=== PATIENT | male | born 1990 | race Hispanic/Latino ===

== ENCOUNTER 2017-12-31 08:21 | Emergency (ER) | payer SELFPAY ==
[2017-12-31 08:39] LABS: APPEARANCE,URINE Cloudy (CLEAR); BILIRUBIN,URINE Negative (NEGATIVE); COLOR,URINE Yellow (YELLOW); GLUCOSE, URINE (UA) Negative (NEGATIVE); KETONES,URINE Negative (NEGATIVE); LEUKOCYTE ESTERASE ,URINE Large (NEGATIVE); NITRATE,URINE Negative (NEGATIVE); OCCULT BLOOD,URINE Nonhemolyzed Trace (NEGATIVE); PROTEIN,URINE Negative (NEGATIVE)
[2017-12-31 08:47] LABS: AMPHET/METH SCREEN,URINE NEGATIVE (NEGATIVE); BARBITURATE SCREEN, URINE NEGATIVE (NEGATIVE); BENZODIAZEPINES SCREEN,URINE NEGATIVE (NEGATIVE); CANNABINOID SCREEN,URINE NEGATIVE (NEGATIVE); COCAINE SCREEN,URINE NEGATIVE (NEGATIVE); OPIATE SCREEN,URINE NEGATIVE (NEGATIVE); PHENCYCLIDINE SCREEN,URINE NEGATIVE (NEGATIVE)
[2017-12-31] MEDS ORDERED: SODIUM CHLORIDE 0.9% 1000ML 1,000 ML IV ONE (08:57)
[2017-12-31] MEDS ORDERED: KETOROLAC TROMETHAMINE 30MG/ML ONE (08:57)
[2017-12-31 09:04] LABS: BASOPHILS % (AUTO) 0.4 % (0.0-5.0); EOSINOPHILS % (AUTO) 0.8 % (0.0-8.0); HEMATOCRIT 44.8 % (42-54); LYMPHOCYTES % (AUTO) 8.7 % (21.0-51.0); MEAN CORPUSCULAR HEMOGLOBIN 31.5 pg (27.0-33.0); MEAN CORPUSCULAR HGB CONC 34.9 g/dL (32.0-36.0); MEAN CORPUSCULAR VOLUME 90.5 fL (79-99); MONOCYTES % (AUTO) 6.3 % (3.0-13.0); NEUTROPHILS % (AUTO) 83.8 % (40.0-77.0); PLATELET COUNT (AUTO) 277 K/uL (130-400); RED BLOOD CELL COUNT(AUTO) 4.95 MIL/uL (4.50-6.20); WHITE BLOOD COUNT (AUTO) 19.5 K/uL (4.8-10.8)
[2017-12-31 09:10] LABS: WBC,URINE 26-50 /HPF (0-1)
[2017-12-31 09:11] LABS: BACTERIA,URINE Few /HPF (None Seen); SQUAMOUS EPITHELIAL CELL,UR 0-2 /HPF (0-2)
[2017-12-31 09:15] LABS: CREATININE 0.8 mg/dL (0.5-1.5); POTASSIUM 3.7 mmol/L (3.5-5.1)
[2017-12-31 09:20] LABS: ALBUMIN 3.8 g/dL (3.5-5.0); BILIRUBIN,TOTAL 0.7 mg/dL (0.2-1.0); TOTAL PROTEIN, SERUM 7.9 g/dL (6.0-8.3)
[2017-12-31] MEDS ORDERED: CEFTRIAXONE SODIUM 1 GM ONE ×2 (09:22→09:24)
[2017-12-31] MEDS ORDERED: SODIUM CHLORIDE 0.9% 100 ML IV ONE ×2 (09:22→09:24)
== END 2017-12-31 10:30 | disposition home or self-care (01) ==
LOC: EDH 08:21
DX: N45.1 Epididymitis (principal); N39.0 Urinary tract infection, site not specified
CPT/HCPCS: 36415; 76870; 80053; 80305; 81001; 85025; 96374; 96375; 99285; J0696 ×2; J1885; J7030

== ENCOUNTER 2019-08-31 03:09 | Emergency (ER) | payer OTHER ==
[2019-08-31] MEDS ORDERED: KETOROLAC TROMETHAMINE 15MG/ML ONE (03:39)
[2019-08-31] MEDS ORDERED: MORPHINE SULFATE 2 MG/ML 1ML SYG ONE (03:39)
[2019-08-31] MEDS ORDERED: ONDANSETRON HCL 4 MG/2 ML VIAL ONE (03:39)
[2019-08-31] MEDS ORDERED: SODIUM CHLORIDE 0.9% 1000ML 1,000 ML IV ONE (03:40)
[2019-08-31 03:44] LABS: BASOPHILS % (AUTO) 0.4 % (0.0-5.0); EOSINOPHILS % (AUTO) 1.1 % (0.0-8.0); HEMATOCRIT 49.2 % (42-54); LYMPHOCYTES % (AUTO) 19.7 % (21.0-51.0); MEAN CORPUSCULAR HGB CONC 35.4 g/dL (32.0-36.0); MEAN CORPUSCULAR VOLUME 90.6 fL (79-99); MONOCYTES % (AUTO) 5.6 % (3.0-13.0); NEUTROPHILS % (AUTO) 72.5 % (40.0-77.0); PLATELET COUNT (AUTO) 227 K/uL (130-400); RED BLOOD CELL COUNT(AUTO) 5.43 MIL/uL (4.50-6.20); RED CELL DISTRIBUTION WIDTH 13.3 % (11.0-15.5); WHITE BLOOD COUNT (AUTO) 15.6 K/uL (4.8-10.8)
[2019-08-31 03:59] LABS: CREATININE 1.2 mg/dL (0.5-1.5)
[2019-08-31] MEDS ORDERED: SODIUM CHLORIDE 0.9% 100 ML IV ONE (04:02)
[2019-08-31] MEDS ORDERED: LIDOCAINE PF 2% 5ML ABBOJECT ONE (04:02)
[2019-08-31 04:04] LABS: ALBUMIN 4.2 g/dL (3.5-5.0); BILIRUBIN,TOTAL 0.5 mg/dL (0.2-1.0); TOTAL PROTEIN, SERUM 7.7 g/dL (6.0-8.3)
[2019-08-31] MEDS ORDERED: MORPHINE SULFATE 4 MG/1ML SYG ONE (05:15)
[2019-08-31 05:39] LABS: APPEARANCE,URINE Clear (CLEAR); BILIRUBIN,URINE Negative (NEGATIVE); COLOR,URINE Yellow (YELLOW); GLUCOSE, URINE (UA) Negative (NEGATIVE); KETONES,URINE Negative (NEGATIVE); LEUKOCYTE ESTERASE ,URINE Trace (NEGATIVE); NITRATE,URINE Negative (NEGATIVE); OCCULT BLOOD,URINE Large (NEGATIVE); PROTEIN,URINE Negative (NEGATIVE); UROBILINOGEN,URINE 0.2 mg/dL (0.2-1.0)
[2019-08-31 05:54] LABS: BACTERIA,URINE Rare /HPF (None Seen); SQUAMOUS EPITHELIAL CELL,UR Rare /HPF (0-2); WBC,URINE 0-1 /HPF (0-1)
== END 2019-08-31 05:49 | disposition home or self-care (01) ==
LOC: EDH 03:09
DX: N13.2 Hydronephrosis with renal and ureteral calculous obstruction (principal)
CPT/HCPCS: 36415; 74176; 80053; 81001; 85025; 96374; 96375; 96376; 99285; J1885; J2001; J2270; J2405; J7030

== ENCOUNTER 2019-09-27 23:20 | Inpatient (IN) | payer SELFPAY ==
[~2019-09-27] VITALS: Ht 157.5 cm; Wt 72.1 kg
[2019-09-27 23:43] LABS: BASOPHILS % (AUTO) 0.3 % (0.0-5.0); EOSINOPHILS % (AUTO) 0.1 % (0.0-8.0); HEMATOCRIT 47.6 % (42-54); LYMPHOCYTES % (AUTO) 8.4 % (21.0-51.0); MEAN CORPUSCULAR HEMOGLOBIN 31.4 pg (27.0-33.0); MEAN CORPUSCULAR HGB CONC 35.3 g/dL (32.0-36.0); MONOCYTES % (AUTO) 3.3 % (3.0-13.0); NEUTROPHILS % (AUTO) 87.2 % (40.0-77.0); PLATELET COUNT (AUTO) 239 K/uL (130-400); RED BLOOD CELL COUNT(AUTO) 5.35 MIL/uL (4.50-6.20); RED CELL DISTRIBUTION WIDTH 13.2 % (11.0-15.5)
[2019-09-27 23:55] LABS: CREATININE 1.1 mg/dL (0.5-1.5); POTASSIUM 3.7 mmol/L (3.5-5.1)
[2019-09-28 00:01] LABS: ALBUMIN 4.6 g/dL (3.5-5.0); BILIRUBIN,TOTAL 0.9 mg/dL (0.2-1.0)
[2019-09-28] MEDS ORDERED: MORPHINE SULFATE 4 MG/1ML SYG ONE ×2 (00:03→02:00)
[2019-09-28] MEDS ORDERED: ONDANSETRON HCL 4 MG/2 ML VIAL ONE (00:03)
[2019-09-28] MEDS ORDERED: KETOROLAC TROMETHAMINE 30MG/ML ONE (00:03)
[2019-09-28] MEDS ORDERED: SODIUM CHLORIDE 0.9% 1000ML 1,000 ML IV ONE ×3 (00:04→02:47)
[2019-09-28] MEDS ORDERED: CEFTRIAXONE SODIUM 1 GM ONE (01:21)
[2019-09-28] MEDS ORDERED: SODIUM CHLORIDE 0.9% 50 ML IV ONE (01:22)
[2019-09-28 01:35] LABS: BILIRUBIN,URINE Negative (NEGATIVE); COLOR,URINE Yellow (YELLOW); GLUCOSE, URINE (UA) Negative (NEGATIVE); KETONES,URINE 40 mg/dL (NEGATIVE); LEUKOCYTE ESTERASE ,URINE Trace (NEGATIVE); NITRATE,URINE Negative (NEGATIVE); OCCULT BLOOD,URINE Large (NEGATIVE); PH,URINE 6.5 (5.0-8.0); PROTEIN,URINE Negative (NEGATIVE); UROBILINOGEN,URINE 0.2 mg/dL (0.2-1.0)
[2019-09-28 01:43] LABS: APPEARANCE,URINE SLIGHTLY CLOUDY (CLEAR)
[2019-09-28 01:58] LABS: BACTERIA,URINE Rare /HPF (None Seen); SQUAMOUS EPITHELIAL CELL,UR Rare /HPF (0-2); WBC,URINE 0-1 /HPF (0-1)
[2019-09-28] MEDS ORDERED: ACETAMINOPHEN 325 MG TAB PO PRN ×2 (02:30)
[2019-09-28] MEDS ORDERED: LACTULOSE 20 GM/30 ML UDCUP PO PRN (02:30)
[2019-09-28] MEDS ORDERED: ONDANSETRON HCL 4 MG/2 ML VIAL IV PRN (02:30)
[2019-09-28] MEDS ORDERED: KETOROLAC TROMETHAMINE 15MG/ML IV PRN (02:30)
[2019-09-28] MEDS ORDERED: MORPHINE SULFATE 4 MG/1ML SYG IV PRN (02:30)
[2019-09-28] MEDS: CEFTRIAXONE SODIUM 1 GM IV SCH (02:30)
[2019-09-28 04:27] LABS: BASOPHILS % (AUTO) 0.3 % (0.0-5.0); EOSINOPHILS % (AUTO) 0.1 % (0.0-8.0); HEMATOCRIT 44.3 % (42-54); MEAN CORPUSCULAR HEMOGLOBIN 31.3 pg (27.0-33.0); MEAN CORPUSCULAR HGB CONC 35.2 g/dL (32.0-36.0); MEAN CORPUSCULAR VOLUME 88.8 fL (79-99); MONOCYTES % (AUTO) 5.7 % (3.0-13.0); NEUTROPHILS % (AUTO) 78.3 % (40.0-77.0); PLATELET COUNT (AUTO) 211 K/uL (130-400); RED BLOOD CELL COUNT(AUTO) 4.99 MIL/uL (4.50-6.20); RED CELL DISTRIBUTION WIDTH 12.9 % (11.0-15.5); WHITE BLOOD COUNT (AUTO) 15.8 K/uL (4.8-10.8)
[2019-09-28 04:46] LABS: CREATININE 0.8 mg/dL (0.5-1.5)
[2019-09-28] MEDS: TAMSULOSIN HCL 0.4 MG CAP.ER.24H PO SCH ×2 (08:45→09:00)
[2019-09-28] MEDS ORDERED: IBUPROFEN 800 MG TAB PO PRN (08:45)
[2019-09-28] MEDS: FAMOTIDINE/PF 20 MG/2 ML VIAL IV SCH ×2 (09:00→21:18)
[2019-09-28] MEDS: ENOXAPARIN SODIUM 40 MG/0.4 ML SYRINGE SQ SCH (09:00)
[2019-09-28] MEDS ORDERED: TAMSULOSIN HCL 0.4 MG CAP.ER.24H ONE (10:41)
--- NOTE | 2019-09-28 11:03 | NUR ---
INITIAL SW met with patient. Patient states he lives with mother, Alejandra Carpenter, [phone]. No home services or DME. Patient is able to complete ADL's independently and does not drive. Patient does not work at this time. No PCP. Pharmacy is [facility] located on [address] [place] [address]. DCP is home. Patient has no insurance or benefits. He is a [place] citizen and has worked in the . Patient was provided with community resources for post hospitalization follow up. Patient was also provided with Good RX card for prescriptions and educated on [employer] $4 medication program and [employer] $5 medication program. Patient is being assisted by [employer] for financial matters. Addendum: 09/28/19 at 1108 by MARCIE HOBSON SS Amended: Links added.
[2019-09-28 15:15] VITALS: BP 127/85
--- NOTE | 2019-09-28 15:34 | NUR ---
INFO PATIENT ARRIVED ON 3RD FLOOR AT APPROX 1515 HOURS. SEE ED RECORDS FOR MEDICATION ADMINISTRATION PRIOR TO THAT TIME.
[2019-09-28] MEDS: SODIUM CHLORIDE 0.9% 1000ML 1,000 ML IV SCH ×2 (15:38→21:18)
[2019-09-28 20:24] VITALS: BP 118/77
[2019-09-28 23:56] VITALS: BP 121/62
[2019-09-29] MEDS: CEFTRIAXONE SODIUM 1 GM IV SCH (02:08)
[2019-09-29] MEDS: SODIUM CHLORIDE 0.9% 1000ML 1,000 ML IV SCH ×4 (02:09→22:21)
[2019-09-29 03:00] VITALS: BP 129/63
[2019-09-29 06:03] LABS: BASOPHILS % (AUTO) 0.4 % (0.0-5.0); EOSINOPHILS % (AUTO) 1.4 % (0.0-8.0); HEMATOCRIT 45.2 % (42-54); MEAN CORPUSCULAR HEMOGLOBIN 31.6 pg (27.0-33.0); MEAN CORPUSCULAR HGB CONC 35.2 g/dL (32.0-36.0); MEAN CORPUSCULAR VOLUME 89.9 fL (79-99); MONOCYTES % (AUTO) 10.7 % (3.0-13.0); NEUTROPHILS % (AUTO) 53.8 % (40.0-77.0); PLATELET COUNT (AUTO) 205 K/uL (130-400); RED BLOOD CELL COUNT(AUTO) 5.03 MIL/uL (4.50-6.20); RED CELL DISTRIBUTION WIDTH 13.2 % (11.0-15.5); WHITE BLOOD COUNT (AUTO) 9.4 K/uL (4.8-10.8)
[2019-09-29 06:14] LABS: ALBUMIN 3.4 g/dL (3.5-5.0); BILIRUBIN,TOTAL 1.4 mg/dL (0.2-1.0); CREATININE 0.9 mg/dL (0.5-1.5); POTASSIUM 4.2 mmol/L (3.5-5.1); TOTAL PROTEIN, SERUM 6.5 g/dL (6.0-8.3)
[2019-09-29 07:18] VITALS: BP 133/80
[2019-09-29] MEDS: FAMOTIDINE/PF 20 MG/2 ML VIAL IV SCH ×2 (09:49→21:15)
[2019-09-29] MEDS: TAMSULOSIN HCL 0.4 MG CAP.ER.24H PO SCH (09:49)
[2019-09-29] MEDS: ENOXAPARIN SODIUM 40 MG/0.4 ML SYRINGE SQ SCH (09:50)
[2019-09-29 10:48] VITALS: BP 134/71
--- NOTE | 2019-09-29 13:00 | NUR ---
UROLOGY CONSULT Contacted office, at lunch at this time. Back after 1:30pm
[2019-09-29 16:00] VITALS: BP 124/65
[2019-09-29 20:00] VITALS: BP 149/73
[2019-09-30] VITALS: BP 125/61
[2019-09-30] MEDS: CEFTRIAXONE SODIUM 1 GM IV SCH (02:12)
[2019-09-30 03:49] VITALS: BP 130/78
[2019-09-30 05:48] LABS: BASOPHILS % (AUTO) 0.6 % (0.0-5.0); EOSINOPHILS % (AUTO) 1.5 % (0.0-8.0); HEMATOCRIT 43.4 % (42-54); LYMPHOCYTES % (AUTO) 30.1 % (21.0-51.0); MEAN CORPUSCULAR HEMOGLOBIN 31.4 pg (27.0-33.0); MEAN CORPUSCULAR HGB CONC 34.8 g/dL (32.0-36.0); MEAN CORPUSCULAR VOLUME 90.2 fL (79-99); MONOCYTES % (AUTO) 10.5 % (3.0-13.0); NEUTROPHILS % (AUTO) 56.4 % (40.0-77.0); PLATELET COUNT (AUTO) 226 K/uL (130-400); RED BLOOD CELL COUNT(AUTO) 4.81 MIL/uL (4.50-6.20); RED CELL DISTRIBUTION WIDTH 13.2 % (11.0-15.5); WHITE BLOOD COUNT (AUTO) 9.3 K/uL (4.8-10.8)
[2019-09-30 06:09] LABS: ALBUMIN 3.5 g/dL (3.5-5.0); BILIRUBIN,TOTAL 1.1 mg/dL (0.2-1.0); CREATININE 0.9 mg/dL (0.5-1.5); POTASSIUM 3.5 mmol/L (3.5-5.1); TOTAL PROTEIN, SERUM 6.6 g/dL (6.0-8.3)
[2019-09-30] MEDS ORDERED: IOHEXOL 350 MG/ML 100ML INFUS..BTL IV ONE (07:38)
[2019-09-30] MEDS ORDERED: IOHEXOL-350 75 ML VIAL IV ONE (07:42)
[2019-09-30 08:00] VITALS: BP 131/80
[2019-09-30 11:39] VITALS: BP 142/78
[2019-09-30] MEDS ORDERED: FUROSEMIDE 10 MG/ML 4ML VIAL IVP SCH (11:45)
[2019-09-30] MEDS: TAMSULOSIN HCL 0.4 MG CAP.ER.24H PO SCH (12:12)
[2019-09-30] MEDS: ENOXAPARIN SODIUM 40 MG/0.4 ML SYRINGE SQ SCH (12:13)
[2019-09-30] MEDS: FAMOTIDINE/PF 20 MG/2 ML VIAL IV SCH ×2 (12:13→21:02)
[2019-09-30] MEDS: SODIUM CHLORIDE 0.9% 1000ML 1,000 ML IV SCH (14:37)
[2019-09-30 16:00] VITALS: BP 149/84
[2019-09-30 20:00] VITALS: BP 138/76
--- NOTE | 2019-09-30 21:02 | NUR ---
MEDS PT JUST FINISHED WITH HIS SHOWER, TOLERATED ACTIVITY WELL. SHIFT ASSESSMENT DONE, PLEASE REFER TO CHART. DUE MEDS ADMINISTERED, TOLERATED WELL. KEPT COMFORTABLE WITH HOB ELEVATED. ENCOURAGED TO REST AND SLEEP. CALL LIGHT WITHIN REACH. FAMILY AT BEDSIDE. Addendum: 09/30/19 at 2254 by JUAN RYDER RN RN Amended: Links added.
[2019-10-01] VITALS (10 sets, daily range): BP systolic 129–157; BP diastolic 69–99
[2019-10-01] MEDS: CEFTRIAXONE SODIUM 1 GM IV SCH (01:49)
--- NOTE | 2019-10-01 01:55 | NUR ---
MEDS PT RESTING WELL, FAIRLY ASLEEP. NO DISTRESS NOTED. DUE IV MEDS ADMINISTERED. KEPT RESTED AND COMFORTABLE. CALL LIGHT WITHIN REACH. WILL MONITOR PT. FAMILY AT BEDSIDE.
--- NOTE | 2019-10-01 05:02 | NUR ---
ROUNDS PT RESTING WELL, FAIRLY ASLEEP. NO DISTRESS NOTED. KEPT UNDISTURBED FOR NOW. FOR MORE CARE.
[2019-10-01] MEDS: SODIUM CHLORIDE 0.9% 1000ML 1,000 ML IV SCH ×2 (06:13→10:18)
[2019-10-01 06:34] LABS: BASOPHILS % (AUTO) 0.7 % (0.0-5.0); EOSINOPHILS % (AUTO) 1.5 % (0.0-8.0); HEMATOCRIT 45.1 % (42-54); LYMPHOCYTES % (AUTO) 28.3 % (21.0-51.0); MEAN CORPUSCULAR HGB CONC 35.9 g/dL (32.0-36.0); MEAN CORPUSCULAR VOLUME 89.1 fL (79-99); MONOCYTES % (AUTO) 10.4 % (3.0-13.0); NEUTROPHILS % (AUTO) 58.3 % (40.0-77.0); PLATELET COUNT (AUTO) 222 K/uL (130-400); RED BLOOD CELL COUNT(AUTO) 5.06 MIL/uL (4.50-6.20); WHITE BLOOD COUNT (AUTO) 9.2 K/uL (4.8-10.8)
[2019-10-01 06:51] LABS: ALBUMIN 3.7 g/dL (3.5-5.0); BILIRUBIN,TOTAL 1.3 mg/dL (0.2-1.0); POTASSIUM 3.4 mmol/L (3.5-5.1); TOTAL PROTEIN, SERUM 6.9 g/dL (6.0-8.3)
[2019-10-01] MEDS ORDERED: CEFTRIAXONE SODIUM 1 GM IV SCH (10:00)
[2019-10-01] MEDS: FAMOTIDINE/PF 20 MG/2 ML VIAL IV SCH (10:08)
[2019-10-01] MEDS: TAMSULOSIN HCL 0.4 MG CAP.ER.24H PO SCH (10:08)
[2019-10-01] MEDS: ENOXAPARIN SODIUM 40 MG/0.4 ML SYRINGE SQ SCH (10:18)
--- NOTE | 2019-10-01 10:22 | NUR ---
NAUSEA, EMESIS, CHILLS Patient c/o nausea, emesis and chills. VS were obtained and all stable, except for BP, which had increased to 157/99 HR 66 O2 sat on room air 100% RR 20 Temp 97.9 Patient stated he went to urinate and he felt a strong desire to vomit and did vomited yellow emesis. He states he had no breakfast because he did not feel hungry. He stated he felt chills. He said he also felt like a pain that run from his right flank to his right groin area and at the time felt pain. States he urinated and saw some brownish "stuff" in the strainer. Assessed patient. No issues. He was medicated with his morning medications plus zofran IV and new IV bag of NS at 60mL/hr. The urine strainer in restroom does not show any residues. At this point in time he denies any pain and states he does not need any medications for pain. His BP has decreased to 130/75. All other vital signs WNLs. He denies any nausea or chills at this time. Dr. Brush was notified and he incrased rocephin to BID and a dose was given. Also, he ordered to call Dr. Azevedo to ask hi if he is thinking of putting a nephrostomy bag. Dr. Azevedo paged. Pending for him to call back.
--- NOTE | 2019-10-01 13:39 | NUR ---
FOLLOW UP Patient in no distress. He is afebrile and pain-free. States he feels much better. Denies any needs. Dr. Azevedo called and stated he had dictated a noted where he states if high-degree obstruction, IR for nephrostomy; if partial and no pain, D/C and follow up with urologist outpatient. Dr. Brush will be updated. Patient on his cell phone in bed, resting.
[2019-10-01] MEDS ORDERED: IBUP-2077 PO (15:51)
[2019-10-01] MEDS ORDERED: TAMS-1 PO (15:51)
[2019-10-01] MEDS ORDERED: FLU VACC QS2019-20 36MOS UP/PF 60 MCG/0.5 ML ML IM ONE ×2 (18:45→19:48)
--- NOTE | 2019-10-01 19:56 | NUR ---
FLU SHOT LOT # [id number] EXP [id number]
== END 2019-10-01 20:10 | disposition home or self-care (01) | DRG 690 ==
LOC: EDH 23:20 → EDHIP 23:21 → 3CH 09-28 15:15
PROVIDERS: ADMIT Internal Medicine; ATTEND Internal Medicine
DX: N13.6 Pyonephrosis (principal); F12.10 Cannabis abuse, uncomplicated; D72.829 Elevated white blood cell count, unspecified; Z87.442 Personal history of urinary calculi; Z87.891 Personal history of nicotine dependence; Z23 Encounter for immunization
CPT/HCPCS: 36415; 74176; 74400; 76770; 80048; 80053; 81001; 83605; 85025; 87040; 87088; G0378; J0696; J1650; J1885; J1940; J2270; J2405; J3490; J7030; Q2035; Q9967

== ENCOUNTER 2021-07-04 11:21 | Observation (INO) | payer OTHER ==
[~2021-07-04] VITALS: Ht 170.2 cm; Wt 82.2 kg
[~2021-07-04 11:21] MED LIST: IBUP-2077 PO; TAMS-1 PO
[2021-07-04 11:48] LABS: BASOPHILS % (AUTO) 0.6 % (0.0-5.0); EOSINOPHILS % (AUTO) 0.5 % (0.0-8.0); HEMATOCRIT 48.9 % (42-54); MEAN CORPUSCULAR HGB CONC 35.4 g/dL (32.0-36.0); MEAN CORPUSCULAR VOLUME 93.1 fL (79-99); MONOCYTES % (AUTO) 8.2 % (3.0-13.0); NEUTROPHILS % (AUTO) 56.7 % (40.0-77.0); PLATELET COUNT (AUTO) 268 K/uL (130-400); RED BLOOD CELL COUNT(AUTO) 5.25 MIL/uL (4.50-6.20); RED CELL DISTRIBUTION WIDTH 13.3 % (11.0-15.5); WHITE BLOOD COUNT (AUTO) 16.5 K/uL (4.8-10.8)
[2021-07-04] MEDS ORDERED: ONDANSETRON 4MG INJ ONE (11:50)
[2021-07-04 11:52] LABS: CARBON DIOXIDE 24 mmol/L (21-32); CHLORIDE 104 mmol/L (101-111); GLOMERULAR FILTR. RATE CALC 92 mL/min (>60); GLUCOSE,RANDOM 110 mg/dL (70-105); POTASSIUM 3.8 mmol/L (3.5-5.1); SODIUM SERUM 141 mmol/L (136-145); UREA NITROGEN, BLOOD 14 mg/dL (7-18)
[2021-07-04 11:54] LABS: INR 0.97 (0.85-1.15); PROTHROMBIN TIME 10.6 SEC (9.6-11.6)
[2021-07-04 11:55] LABS: PARTIAL THROMBOPLASTIN TIME 25.2 SEC (26.3-35.5)
[2021-07-04 11:59] LABS: ALANINE AMINOTRANSFERASE 34 U/L (12-78); ALBUMIN 4.5 g/dL (3.5-5.0); ALCOHOL, BLOOD < 3 mg/dL (0-10); ASPARTATE AMINOTRANSFERASE 22 U/L (10-37); BILIRUBIN,TOTAL 0.8 mg/dL (0.2-1.0); TOTAL PROTEIN, SERUM 7.9 g/dL (6.0-8.3)
[2021-07-04] MEDS ORDERED: ONDANSETRON 4MG INJ IVP ONE (12:30)
[2021-07-04 14:08] LABS: APPEARANCE,URINE CLEAR (CLEAR); BILIRUBIN,URINE NEGATIVE (NEGATIVE); COLOR,URINE YELLOW (YELLOW); GLUCOSE, URINE (UA) NEGATIVE (NEGATIVE); KETONES,URINE 5 mg/dL (NEGATIVE); LEUKOCYTE ESTERASE ,URINE NEGATIVE (NEGATIVE); NITRATE,URINE NEGATIVE (NEGATIVE); OCCULT BLOOD,URINE MODERATE (NEGATIVE); PROTEIN,URINE NEGATIVE (NEGATIVE); UROBILINOGEN,URINE 0.2 mg/dL (0.2-1.0)
[2021-07-04] MEDS ORDERED: LIDOCAINE HCL 1% 10 ML VIAL ONE (14:14)
[2021-07-04 14:17] LABS: AMPHET/METH SCREEN,URINE NEGATIVE (NEGATIVE); BARBITURATE SCREEN, URINE NEGATIVE (NEGATIVE); BENZODIAZEPINES SCREEN,URINE NEGATIVE (NEGATIVE); CANNABINOID SCREEN,URINE NEGATIVE (NEGATIVE); COCAINE SCREEN,URINE NEGATIVE (NEGATIVE); OPIATE SCREEN,URINE NEGATIVE (NEGATIVE); PHENCYCLIDINE SCREEN,URINE NEGATIVE (NEGATIVE)
[2021-07-04 14:26] LABS: BACTERIA,URINE Rare /HPF (None Seen)
[2021-07-04 14:27] LABS: MUCUS,URINE Few LPF (None Seen); SQUAMOUS EPITHELIAL CELL,UR Rare /HPF (0-2)
[2021-07-04] MEDS: DEXTROSE 5 %-0.45 % NACL 1,000 ML IV SCH (16:28)
[2021-07-04 16:45] VITALS: BP 152/75
[2021-07-04] MEDS: FAMOTIDINE 20MG VIAL IV SCH (19:41)
[2021-07-04] MEDS: ONDANSETRON 4MG INJ IVP PRN (19:41)
[2021-07-04 23:16] VITALS: BP 127/68
[2021-07-04] MEDS: ACETAMINOPHEN 325 MG TAB PO PRN (23:37)
[2021-07-05] MEDS: ACETAMINOPHEN 325 MG TAB PO PRN (00:04)
[2021-07-05 03:10] VITALS: BP 122/64
[2021-07-05] MEDS: DEXTROSE 5 %-0.45 % NACL 1,000 ML IV SCH (05:25)
[2021-07-05] MEDS: ONDANSETRON 4MG INJ IVP PRN ×2 (06:27→16:21)
[2021-07-05 07:25] VITALS: BP 131/77
[2021-07-05] MEDS: FAMOTIDINE 20MG VIAL IV SCH (09:13)
[2021-07-05 11:25] VITALS: BP 133/74
[2021-07-05 15:25] VITALS: BP 108/72
[2021-07-06] MEDS ORDERED: HONEY 1 APPL/ML TUBE TP SCH (09:00)
== END 2021-07-05 18:13 | disposition home or self-care (01) ==
LOC: EDH 11:21 → EDHIP 14:45 → 3AH 16:50
PROVIDERS: ADMIT Specialist; ATTEND Specialist
DX: S01.01XA Laceration without foreign body of scalp, initial encounter (principal); S06.0X9A Concussion with loss of consciousness of unspecified duration, initial encounter; R68.84 Jaw pain; Z79.899 Other long term (current) drug therapy; Z87.442 Personal history of urinary calculi; W17.89XA Other fall from one level to another, initial encounter; Y93.89 Activity, other specified; Y92.89 Other specified places as the place of occurrence of the external cause; Y99.8 Other external cause status
CPT/HCPCS: 12004; 36415; 70450; 71045; 72125; 80053; 80305; 81001; 85025; 85610; 85730; 93005; 96374; 96375; 96376; 99285; G0378 ×27; J2405 ×5; J3490 ×3; J7042

== ENCOUNTER 2024-03-09 00:55 | Emergency (ER) | payer OTHER ==
[~2024-03-09] VITALS: Ht 162.6 cm; Wt 65.8 kg
[2024-03-09 01:45] LABS: BASOPHILS # (AUTO) 0.07 K/uL (0.00-0.20); BASOPHILS % (AUTO) 0.6 % (0.0-5.0); EOSINOPHILS # (AUTO) 0.19 K/uL (0.00-0.70); EOSINOPHILS % (AUTO) 1.6 % (0.0-8.0); HEMATOCRIT 42.1 % (42-54); IMMATURE GRANULOCYTE ABSOLUTE 0.05 K/uL (0-1); LYMPHOCYTES # (AUTO) 4.7 K/uL (1.0-4.8); LYMPHOCYTES % (AUTO) 39.6 % (21.0-51.0); MEAN CORPUSCULAR HEMOGLOBIN 33.2 pg (27.0-33.0); MEAN CORPUSCULAR HGB CONC 35.9 g/dL (32.0-36.0); MEAN CORPUSCULAR VOLUME 92.5 fL (79-99); MONOCYTES # (AUTO) 0.9 K/uL (0.1-1.0); MONOCYTES % (AUTO) 7.1 % (3.0-13.0); NEUTROPHILS # (AUTO) 6.1 K/uL (1.8-7.7); NEUTROPHILS % (AUTO) 50.7 % (40.0-77.0); PLATELET COUNT (AUTO) 278 K/uL (130-400); RED BLOOD CELL COUNT(AUTO) 4.55 MIL/uL (4.50-6.20); RED CELL DISTRIBUTION WIDTH 13.9 % (11.0-15.5); WHITE BLOOD COUNT (AUTO) 11.9 K/uL (4.8-10.8)
[2024-03-09 02:02] LABS: POTASSIUM 3.1 mmol/L (3.5-5.1)
[2024-03-09] MEDS: POTASSIUM CHLORIDE 10% ELIXIR 20 MEQ/15 ML UDCUP PO ONE (04:36)
[2024-03-09] MEDS: KETOROLAC 60 MG VIAL (30MG/ML) IM ONE (04:37)
[2024-03-09 04:48] LABS: APPEARANCE,URINE CLEAR (CLEAR); BILIRUBIN,URINE NEGATIVE (NEGATIVE); COLOR,URINE YELLOW (YELLOW); GLUCOSE, URINE (UA) NEGATIVE (NEGATIVE); KETONES,URINE 5 mg/dL (NEGATIVE); LEUKOCYTE ESTERASE ,URINE NEGATIVE Leu/uL (NEGATIVE); NITRATE,URINE NEGATIVE (NEGATIVE); PROTEIN,URINE 20 mg/dL (NEGATIVE)
[2024-03-09 04:49] LABS: ADD UA MICROSCOPIC YES
[2024-03-09 04:54] LABS: AMPHET/METH SCREEN,URINE NEGATIVE (NEGATIVE); BARBITURATE SCREEN, URINE NEGATIVE (NEGATIVE); BENZODIAZEPINES SCREEN,URINE NEGATIVE (NEGATIVE); CANNABINOID SCREEN,URINE POSITIVE (NEGATIVE); COCAINE SCREEN,URINE NEGATIVE (NEGATIVE); MUCUS,URINE MANY LPF (None Seen); OPIATE SCREEN,URINE NEGATIVE (NEGATIVE); PHENCYCLIDINE SCREEN,URINE NEGATIVE (NEGATIVE)
[2024-03-09 05:38] VITALS: BP 130/78; PULSE 86; RESP 20; O2SAT 100
[2024-03-09] MEDS ORDERED: OCTYL 2-CYANOACRYLATE 1 EACH TP ONE (05:50)
== END 2024-03-09 05:53 | disposition home or self-care (01) ==
LOC: EDH 00:55
DX: S06.0XAA Concussion with loss of consciousness status unknown, initial encounter (principal); S01.01XA Laceration without foreign body of scalp, initial encounter; S10.93XA Contusion of unspecified part of neck, initial encounter; V49.9XXA Car occupant (driver) (passenger) injured in unspecified traffic accident, initial encounter; Y93.89 Activity, other specified; Y92.89 Other specified places as the place of occurrence of the external cause; Y99.8 Other external cause status
CPT/HCPCS: 99285; 70450; 71045; 80048; 80305; 85025; 81001; 36415; 72125; 96372; J1885